=== PATIENT | female | born 1980 | race Hispanic/Latino ===

== ENCOUNTER → 2021-10-27 | Outpatient (CLI) | payer OTHER | END | disposition home or self-care (01) | LOC: DTH 13:02 | PROVIDERS: ATTEND Surgery | DX: Z71.3 Dietary counseling and surveillance (principal); E78.00 Pure hypercholesterolemia, unspecified; K76.0 Fatty (change of) liver, not elsewhere classified; K21.9 Gastro-esophageal reflux disease without esophagitis; E66.01 Morbid (severe) obesity due to excess calories; Z68.41 Body mass index [BMI] 40.0-44.9, adult | CPT/HCPCS: 97802 ==

== ENCOUNTER 2022-01-21 11:00 | Inpatient (IN) | payer OTHER ==
[~2022-01-21] VITALS: Ht 160 cm; Wt 106.9 kg
[2022-01-21 12:53] LABS: BASOPHILS % (AUTO) 0.3 % (0.0-5.0); EOSINOPHILS % (AUTO) 0.6 % (0.0-8.0); HEMATOCRIT 42.4 % (36-48); LYMPHOCYTES % (AUTO) 28.6 % (21.0-51.0); MEAN CORPUSCULAR HEMOGLOBIN 28.5 pg (27.0-33.0); MEAN CORPUSCULAR HGB CONC 32.3 g/dL (32.0-36.0); MEAN CORPUSCULAR VOLUME 88.3 fL (79-99); MONOCYTES % (AUTO) 7.7 % (3.0-13.0); NEUTROPHILS % (AUTO) 62.1 % (40.0-77.0); PLATELET COUNT (AUTO) 240 K/uL (130-400); RED CELL DISTRIBUTION WIDTH 13.3 % (11.0-15.5); WHITE BLOOD COUNT (AUTO) 8.7 K/uL (4.8-10.8)
[2022-01-21 13:32] LABS: CREATININE 0.6 mg/dL (0.5-1.5); POTASSIUM 4.3 mmol/L (3.5-5.1)
[2022-01-28 09:16] VITALS: BP 117/75
[2022-01-28] MEDS ORDERED: COLLAGEN PO (10:42)
[2022-01-28] MEDS ORDERED: MULT200T12 PO (10:42)
[2022-01-28] MEDS ORDERED: IRON PO (10:42)
[2022-01-28] MEDS ORDERED: LEVO25CA4 PO (10:42)
[2022-01-28] MEDS ORDERED: OMEP20TA2 PO (10:42)
[2022-01-28] MEDS ORDERED: VITAMIN D PO (10:42)
[2022-01-29] VITALS (23 sets, daily range): BP systolic 122–155; BP diastolic 75–96
[2022-01-29] MEDS ORDERED: METHYLENE BLUE 5 MG/ML AMP ONE (05:07)
[2022-01-29] MEDS ORDERED: BUPIVACAINE/EPI/PF 0.5% 30ML VIAL IJ ONE ×2 (05:09→08:35)
[2022-01-29] MEDS ORDERED: CEFOXITIN SODIUM 2 GM VIAL ONE (07:20)
[2022-01-29] MEDS ORDERED: HEPARIN 5,000 UNIT VIAL ONE (07:20)
[2022-01-29] MEDS ORDERED: LACTATED RINGERS 1000ML 1,000 ML IV ONE (07:20)
[2022-01-29] MEDS ORDERED: LIDOCAINE PF 100MG/5ML (2%) SYRINGE 5ML ONE (08:09)
[2022-01-29] MEDS ORDERED: PROPOFOL 10 MG/ML 20ML VIAL IV ONE (08:09)
[2022-01-29] MEDS ORDERED: FENTANYL CITRATE PF 50 MCG/1 ML 2ML VIAL ONE (08:09)
[2022-01-29] MEDS ORDERED: MIDAZOLAM HCL 1 MG/ML 2ML VIAL ONE (08:10)
[2022-01-29] MEDS ORDERED: ROCURONIUM 10MG/1ML SYR 10 MG/ML ML ONE (08:10)
[2022-01-29] MEDS ORDERED: CEFAZOLIN SODIUM 2 GM VIAL IVPB ONE (08:10)
[2022-01-29] MEDS ORDERED: ONDANSETRON 4MG INJ ONE (08:49)
[2022-01-29] MEDS ORDERED: DEXAMETHASONE SOD PHOSPHATE 10MG/ML 1ML VIAL ONE ×2 (08:50)
[2022-01-29] MEDS ORDERED: KETOROLAC 30MG VIAL (30MG/ML) ONE ×2 (08:50)
[2022-01-29] MEDS ORDERED: SUGAMMADEX SODIUM 200 MG/2 ML VIAL IV ONE (09:45)
[2022-01-29] MEDS ORDERED: IPRATROPIUM/ALBUTEROL SULFATE 3 ML SOLUTION IH ONE (10:16)
[2022-01-29] MEDS ORDERED: HYDROMORPHONE 1 MG INJ ONE ×2 (10:24→10:43)
[2022-01-29] MEDS ORDERED: HYDROMORPHONE PCA 10 MG/50 ML 50 ML IV PRN (11:30)
[2022-01-29] MEDS: LACTATED RINGERS 1000ML 1,000 ML IV SCH (11:30)
[2022-01-29] MEDS ORDERED: PROMETHAZINE HCL 25 MG/ML 1ML AMPULE IVPB PRN (12:00)
[2022-01-29] MEDS ORDERED: PROCHLORPERAZINE 10MG/2ML INJ IV PRN (16:30)
[2022-01-29] MEDS: HEPARIN 5,000 UNIT VIAL SQ SCH (17:21)
[2022-01-29] MEDS ORDERED: MEPERIDINE-PF 25 MG/ML SYG IV PRN (17:30)
[2022-01-29] MEDS ORDERED: PROMETHAZINE HCL 25 MG/ML 1ML AMPULE IM PRN ×3 (17:30)
[2022-01-29] MEDS ORDERED: MORPHINE 2 MG SYG IM PRN ×5 (17:30)
[2022-01-29] MEDS ORDERED: MORPHINE 4 MG SYG IM PRN (17:30)
[2022-01-29] MEDS: FAMOTIDINE 20MG VIAL IV SCH (21:29)
[2022-01-30] MEDS: LACTATED RINGERS 1000ML 1,000 ML IV SCH ×3 (01:25→09:25)
[2022-01-30] MEDS: HEPARIN 5,000 UNIT VIAL SQ SCH ×2 (01:26→11:53)
[2022-01-30 04:00] VITALS: BP 108/75
[2022-01-30] MEDS: INSULIN HUMULIN R 100 UNIT/ML 3ML SQ SCH ×2 (06:05→11:30)
[2022-01-30] MEDS ORDERED: LEVOTHYROXINE 25 MCG TABLET PO SCH (06:30)
[2022-01-30 07:30] VITALS: BP 131/64
[2022-01-30] MEDS ORDERED: MULTIVIT MINERALS PO SCH (09:00)
[2022-01-30] MEDS ORDERED: FOLIC ACID PO SCH (09:00)
[2022-01-30] MEDS ORDERED: IRON PO SCH (09:00)
[2022-01-30] MEDS ORDERED: COLLAGEN PO SCH (09:00)
[2022-01-30] MEDS: FAMOTIDINE 20MG VIAL IV SCH (09:20)
[2022-01-30 11:00] VITALS: BP 112/73
[2022-02-05] MEDS ORDERED: VITAMIN D PO SCH (09:00)
== END 2022-01-30 16:40 | disposition home or self-care (01) | DRG 621 ==
LOC: DAHIP 01-29 06:45 → 4DH 01-29 11:20
PROVIDERS: ADMIT Surgery; ATTEND Surgery
PROC: 0DB64Z3 Excision of Stomach, Percutaneous Endoscopic Approach, Vertical (ICD-10-PCS; principal; 2022-01-29 08:08)
DX: E66.01 Morbid (severe) obesity due to excess calories (principal); K21.9 Gastro-esophageal reflux disease without esophagitis; Z20.822 Contact with and (suspected) exposure to COVID-19; E03.9 Hypothyroidism, unspecified; Z68.41 Body mass index [BMI] 40.0-44.9, adult
CPT/HCPCS: 36415; 80048; 81025; 82948; 84703; 85025; 87426; 93005; 94640; G0378; J0694; J1100; J1170; J1644; J1885; J2001; J2250; J2270; J2405; J2704; J3010; J3490; J7030; J7120; Q9968